=== PATIENT | male | born 1965 | race Caucasian/White ===

== ENCOUNTER → 2018-10-20 | Outpatient (CLI) | payer OTHER ==
--- NOTE | ~2018-10-20 | P ---
[facility] [place] [address] PROCEDURE REPORT Name: RANULFO KIRBY JR Room #: [facility].#: [id number] Admission: 10/20/18 ������������������ Attend Phys: Brett Figueroa MD Discharge: ������������������ Date of : 63 Report #: [id number] THIS REPORT FOR: //name// CC: Benoit Figueroa PROCEDURE: Implantable loop recorder insertion. HISTORY: The patient is a 53-year-old male with history of palpitations and AFib, who is here for implantable loop recorder insertion. DESCRIPTION OF PROCEDURE: The patient underwent informed consent. He was then prepped in a sterile fashion. I injected lidocaine at the incision site. Incision was made. The device was injected under the skin, single layer of 3-0 suture was placed under the skin and surgical glue was placed on the outer skin layer. There were no procedure related complications. The implanted device was a [employer]irm, model #3500, serial #[id number] with R waves of 0.6 millivolts. The device was programmed to look for paroxysmal AFib, lasting more than 2 minutes and episodes of SVT. CONCLUSIONS: Successful implantable loop recorder insertion. ��������������������������������������������� ���������������������������������������� By: ��������������������������������������������� [id number] Brett Figueroa MD /nt
[2018-10-20 08:48] VITALS: BP 113/84
== END | disposition home or self-care (01) ==
LOC: CATH 08:28
DX: I48.0 Paroxysmal atrial fibrillation (principal); R00.2 Palpitations; Z79.01 Long term (current) use of anticoagulants